=== PATIENT | female | born 1935 | race Caucasian/White ===

== ENCOUNTER → 2016-07-20 | Outpatient (CLI) | payer OTHER, MEDICARE | LOC: FIMAGING 14:29 → EDSTATUS 14:30 | PROVIDERS: ATTEND Family Medicine | DX: M19.041 Primary osteoarthritis, right hand (principal) ==

== ENCOUNTER → 2016-07-20 | Outpatient (CLI) | payer OTHER, MEDICARE | LOC: BHFA 13:15 | PROVIDERS: ATTEND Internal Medicine Interventional Cardiology | DX: I34.0 Nonrheumatic mitral (valve) insufficiency (principal); I48.91 Unspecified atrial fibrillation ==

== ENCOUNTER → 2016-10-12 | Outpatient (CLI) | payer OTHER, MEDICARE | LOC: BHFA 09:15 | PROVIDERS: ATTEND Internal Medicine Interventional Cardiology | DX: I48.91 Unspecified atrial fibrillation (principal); I10 Essential (primary) hypertension; I25.10 Atherosclerotic heart disease of native coronary artery without angina pectoris ==

== ENCOUNTER → 2016-11-12 | Outpatient (CLI) | payer OTHER, MEDICARE | LOC: FIMAGING 10:44 | PROVIDERS: ATTEND Family Medicine | DX: Z12.31 Encounter for screening mammogram for malignant neoplasm of breast (principal) | CPT/HCPCS: G0202 ==

== ENCOUNTER 2016-11-16 07:32 | Day surgery (SDC) | payer OTHER, MEDICARE ==
[2016-11-16] MEDS ORDERED: NS 1,000 ML IV ONE (07:36)
[2016-11-16] MEDS ORDERED: FAMOTIDINE 20 MG TAB PO ONE (07:36)
[2016-11-16] MEDS ORDERED: diphenhydrAMINE 25 MG CAP PO ONE (07:36)
[2016-11-16] MEDS ORDERED: DIAZEPAM 5 MG TAB PO ONE (07:36)
[2016-11-16] MEDS ORDERED: ASPIRIN EC 325 MG TAB PO ONE (07:36)
--- NOTE | 2016-11-16 08:09 | CPEKG ---
Heart Rate: 76 RR Interval: 789 P-R Interval: 188 QRSD Interval: 82 QT Interval: 412 QTC Interval: 464 QRS [place]: 8 T Wave [place]: 214 EKG Severity - ABNORMAL ECG - EKG Impression: ATRIAL-PACED RHYTHM EKG Impression: LVH WITH SECONDARY REPOLARIZATION ABNORMALITY EKG Impression: REPOL ABNRM, PROBABLE ISCHEMIA, ANT-LAT LEADS Electronically Signed By: Alissa Del Angel 16-Nov-2016 11:55:48
[2016-11-16 08:20] LABS: % IMMATURE GRANULYOCYTES 0.2 % (0.0-1.1); ABSOLUTE IMMATURE GRANULOCYTES 0.01 10^3/uL (0.00-0.10); ADD DIFF? NO; ADD MORPH? NO; ADD SCAN? NO; ATYPICAL LYMPHOCYTE FLAG 10 (0-99); FRAGMENT RBC FLAG 0 (0-99); HEMATOCRIT 42.1 % (38.0-47.0); HEMOGLOBIN 13.9 g/dL (12.6-16.3); LEFT SHIFT FLG 0 (0-99); LIPEMIA HEMOLYSIS FLAG 80 (0-99); MEAN CELL HEMOGLOBIN 31.9 pg (27.9-34.1); MEAN CELL VOLUME 96.6 fL (81.5-99.8); MEAN PLATELET VOLUME 10.5 fL (8.7-11.7); PLATELET CLUMPS FLAG 0 (0-99); PLATELET COUNT 214 10^3/uL (150-400); RED BLOOD CELL COUNT 4.36 10^6/uL (4.18-5.33); RED CELL DISTRIBUTION WIDTH 13.1 % (11.5-15.2)
[2016-11-16 08:29] LABS: INR 1.13 (0.83-1.16); PROTIME(PATIENT) 14.4 SEC (12.0-15.0)
[2016-11-16] MEDS ORDERED: LIDOCAINE 1% 300 MG/30 ML SDV ONE (08:31)
[2016-11-16] MEDS ORDERED: fentaNYL 100 MCG/2 ML INJ ONE (08:31)
[2016-11-16] MEDS ORDERED: MIDAZOLAM 2 MG/2 ML VIAL ONE (08:31)
[2016-11-16] MEDS ORDERED: IOPAMIDOL (ISOVUE-370) 150 ML BTL IV ONE (08:32)
[2016-11-16] MEDS ORDERED: VERAPAMIL 5 MG/2 ML VIAL ONE (08:32)
[2016-11-16] MEDS ORDERED: HEPARIN 10,000 UNIT/10 ML MDV ONE (08:32)
[2016-11-16 08:42] LABS: ANION GAP 11 mEq/L (8-16); CALCIUM 10.6 mg/dL (8.5-10.4); CARBON DIOXIDE 24 mEq/l (22-31); CHLORIDE 106 mEq/L (97-110); CHOLESTEROL 147 mg/dL (140-220); CHOLESTEROL/HDL RATIO 2.63 RATIO (1.00-4.44); CREATININE 0.9 mg/dL (0.6-1.0); GLOMERULAR FILTRATION RATE > 60; GLUCOSE 97 mg/dL (70-100); HIGH DENSITY LIPOPROTEIN 56 mg/dL (40-85); LDL/HDL RATIO 1.34 RATIO (1.00-3.22); LOW DENSITY LIPOPROTEIN 75 mg/dL (80-100); MAGNESIUM 2.1 mg/dL (1.6-2.3); NON-HIGH DENSITY LIPOPROTEIN 91 mg/dL (90-129); POTASSIUM 4.3 mEq/L (3.5-5.2); SODIUM 141 mEq/L (134-144); TRIGLYCERIDE 84 mg/dL (35-135); VERY LOW DENSITY LIPOPROTEINS 16 mg/dL (8-25)
--- NOTE | 2016-11-16 09:53 | PDPROPOC ---
Sedation Plan of Care Sedation Plan of Care: vital signs stable, mental status noted, patient educated of risks, benefits, alternatives, patient can tolerate sedation ASA Classification: ASA 3 Planned drugs: fentanyl, midazolam (possible Etomidate) Mallampati Score: Class 3 Mallampati Reference Image: Patient passed 3-3-2 rule?: Yes
--- NOTE | 2016-11-16 09:54 | PDHPUP ---
History & Physical Update H&P update statement: This history and physical update is based on an assessment of the patient which was completed after admission or registration (within 24 hours), but prior to the surgery/procedure. H&P update: H&P reviewed & patient examined, no change in patient's condition since H&P completed
--- NOTE | 2016-11-16 10:19 | PDDXCAT ---
Diagnostic Cath Note - . Date: 11/16/16 Physicist Acoustics: Thais Indication: CCC Class III and IV angina on medical treatment, other - Procedure Access: right groin Procedure: left heart catheterization, right heart catheterization - Materials Left Heart Cath size: 5F Left Heart Cath materials: standard multipack (JL4, JR4, pigtail) Right Heart Cath size: 7F Right Heart Cath materials: PWP catheter - Findings-Left Heart Catheterization LM: 6mm in size. Trifurcates into an LAD, Circumflex, and Ramus system. No significant plaque or lumenal narrowing. LAD: 3.5mm in size. There are multiple small diagonal and septal branches of the LAD proper. The blood vessels distally are extremely small and tortuous. Distal to the second and major diagonal branch, the LAD has an intramyocardial course. There is systolic compression of the LAD of approx 25% of it's lumen over a distance of approx 25mm. All of the major septal branches appear to compress almost completely during systole, which is consistent with abnormal septal hypertrophy. This is best observed ASHLEY cranial projection. LCX: 2.5mm in size approximately. It gives rise to small obtuse marginal branches, both of which are less than 2mm in size. RCA: 4mm in size and super dominant giving rise to the PDA and 3 improtant posteriolateral ventricular branches all of which are free of flow limiting obstruction. KIRK III flow throughout. Ramus: Ramus intermedius/ high obtuse marginal is 1.5mm in size and also has an intramyocardial course with complete systolic compression of the lumen for approx 15mm of its course. KIRK III flow throughout. EDP: LVEDP is 13 mmHg which is normal. LVEF: LVEF is 65%. Wall motion: No segmental wall motion abnormalities are identified; however, the left ventricular cavity is very strangely shaped. There is evidence of aysmmetrical septal hypertrophy, apical cavity obliteration which may be consistent with an apical variant of hypertrophic cardiomyopathy as well. There is no evidence of an outflow tract gradient with a careful pullback using a multipurpose catheter. There is Grade I mitral regurgitation. - Findings-Right Heart Catheterization RA: Pressure: 7/3 mean 4 mmHg RV: Pressure: 39/4 end diastolic pressure is 9mmHg. PA: Pressure: 46/21. Saturation: 75.5% PAOP: 13mmHg. AO: 97.8% CO: 5.17 L/min CI: 3.40 l/min/m2 Complications: NONE. 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 She has a right dominant coronary system that is free of flow limiting coronary disease. Multiple segments of her blood vessels on left side have an intramyocardial course. There is at least Grade I MR. 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 Plan: The patient also has mild to moderate pulmonary hypertension but a definitive cause for the patient's new onset of shortness of breath is not identified on the basis of this study. Intervention: NONE. 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
[2016-11-16] MEDS ORDERED: ATROPINE SULFATE 1 MG/10 ML SYR ONE (11:28)
[2016-11-16] MEDS ORDERED: IOPAMIDOL (ISOVUE 370) 100 ML BTL IV ONE (12:51)
== END 2016-11-16 20:02 | disposition home or self-care (01) ==
LOC: FCATH 07:32
PROVIDERS: ATTEND Internal Medicine Cardiovascular Disease
DX: I25.119 Atherosclerotic heart disease of native coronary artery with unspecified angina pectoris (principal); I42.2 Other hypertrophic cardiomyopathy; I34.0 Nonrheumatic mitral (valve) insufficiency; I27.2 Other secondary pulmonary hypertension; R91.8 Other nonspecific abnormal finding of lung field; R92.8 Other abnormal and inconclusive findings on diagnostic imaging of breast; I10 Essential (primary) hypertension; E78.5 Hyperlipidemia, unspecified; M81.0 Age-related osteoporosis without current pathological fracture; Z95.0 Presence of cardiac pacemaker; Z85.820 Personal history of malignant melanoma of skin; Z79.01 Long term (current) use of anticoagulants
CPT/HCPCS: J0461; J1644; J2250; J3010; Q9967

== ENCOUNTER → 2017-11-25 | Outpatient (CLI) | payer OTHER, MEDICARE | LOC: FIMAGING 10:43 | PROVIDERS: ATTEND Family Medicine | DX: Z12.31 Encounter for screening mammogram for malignant neoplasm of breast (principal) ==

== ENCOUNTER → 2018-01-27 | Outpatient (CLI) | payer OTHER, MEDICARE | LOC: BHFA 10:00 | PROVIDERS: ATTEND Internal Medicine | DX: I25.10 Atherosclerotic heart disease of native coronary artery without angina pectoris (principal) ==